=== PATIENT | male | born 1975 | race Caucasian/White ===

== ENCOUNTER 2025-03-22 09:02 | Outpatient (CLI) | payer OTHER ==
--- NOTE | 2025-03-22 16:40 | CARDIOLOGY REPORT ---
APPROVED REPORT EXAM: Comprehensive 2D, Doppler, and color-flow Echocardiogram. Patient Location: OUT-PATIENT Blood Pressure: 149/98 mmHg Heart Rate: 80 bpm Rhythm: Type 2 AV Block Indications ATRIOVENTRICULAR BLOCK TELLER MANAGER: None. PRIOR ECHOCARDIOGRAM: MMCR, faxing 2D Dimensions RVDd 3.5 cm IVSd 0.8 (0.7-1.1cm) LVDd 5.0 cm PWd 0.9 (0.7-1.1cm) IVSs 1.2 (0.8-1.2cm) LVDs 3.7 (2.5-4.0cm) PWs 1.6 (0.8-1.2cm) LVOT Diameter 2.04 (1.8-2.4cm) LVEF(%) 57.0 (>50%) FS (%) 27.0 % SV 59.1 ml M-Mode Dimensions Left Atrium(MM) 4.06 (2.5-4.0cm) Aortic Root 2.87 (2.2-3.7cm) Aortic Valve AoV Peak Christopher. 112.7 cm/s AoV VTI 21.5 cm AO Peak GR. 5.1 mmHg AO Mean GR. 2 mmHg LVOT VTI 13.11 cm LVOT Peak Christopher. 82.6 cm/s LUIS (VMAX) 2.40 cm2 LUIS (VTI) 1.99 cm2 Mitral Valve MV E Velocity 59.3 cm/s MV DECEL TIME 222 ms MV A Velocity 67.0 cm/s MV PHT 39 ms E/A Ratio 0.9 MVA (PHT) 5.66 cm2 Pulmonary Valve PV Peak Velocity 80.0 cm/s PV Peak Grad. 3 mmHg Tricuspid Valve TR P. Velocity 223 cm/s RAP ESTIMATE 5 mmHg TR Peak Gr. 20 mmHg RVSP 25 mmHg LEFT VENTRICLE Normal LV size and wall thickness. Overall systolic function is normal. Patient in AV Block with vary ing pauses. LVEF is 55-60%. RIGHT VENTRICLE RV is normal size and function. ATRIA Left atrium is borderline dilated. The right atrium size is normal. AORTIC VALVE Trileaflet AV appears normal without stenosis. No insufficiency. MITRAL VALVE The mitral valve is normal in structure. Trace regurgitation. TRICUSPID VALVE The tricuspid valve is normal in structure. Mild regurgitation. PULMONIC VALVE Normal PV without stenosis with mild insufficiency. GREAT VESSELS The aortic root is normal in size. IVC is normal in size and collapses greater than 50% with inspirat ion. PERICARDIUM Normal pericardium. No effusion. Other Information Study Quality: Good Conclusion Normal LV size and wall thickness. Overall systolic function is normal. LVEF is 55-60%. RV is normal size and function. Left atrium is borderline dilated. The right atrium size is normal. Trileaflet AV appears normal without stenosis. No insufficiency. The mitral valve is normal in structure. Trace regurgitation. The tricuspid valve is normal in structure. Mild regurgitation. Normal PV without stenosis with mild insufficiency. Normal pericardium. No effusion.
== END 2025-03-22 23:59 | disposition home or self-care (01) ==
LOC: CARD DIAG 09:02
PROVIDERS: ATTEND Chiropractor
DX: I08.8 Other rheumatic multiple valve diseases (principal); I44.30 Unspecified atrioventricular block
CPT/HCPCS: 93306